=== PATIENT | female | born 1950 | race Caucasian/White ===

== ENCOUNTER 2017-07-23 08:18 | Day surgery (SDC) | payer OTHER ==
[~2017-07-23 08:18] MED LIST: ENALAPRIL MALEAT5 MG PO; FORTAMET1000 MG PO; HUMULIN N100 UNIT/2; TAGAMET300 MG PO
== END 2017-07-23 17:00 | disposition home or self-care (01) ==
LOC: CIR.AMB 08:18
DX: N32.81 Overactive bladder (principal)
CPT/HCPCS: 64581; C1778